=== PATIENT | female | born 1955 | race Caucasian/White ===

== ENCOUNTER → 2017-03-30 | Outpatient (CLI) | payer OTHER ==
--- NOTE | 2017-03-30 18:07 | RADIOLOGY REPORT (SQ) ---
EXAM DESCRIPTION: KUB COMPLETED DATE/TIME: 03/30/2017 5:39 pm REASON FOR STUDY: ACUTE CYSTITIS WITH HEMATURIA N30.01 ACUTE CYSTITIS WITH HEMATURIA COMPARISON: 02/16/2016 NUMBER OF VIEWS: One view. TECHNIQUE: Supine radiographic image of the abdomen acquired. LIMITATIONS: None. FINDINGS: BOWEL GAS PATTERN: Normal bowel gas pattern. No dilated loops. CALCIFICATIONS: No suspicious calcifications. Pelvic calcifications are unchanged. SOFT TISSUES: No gross mass or suggestion of organomegaly. HARDWARE: None in the abdomen. BONES: No acute fracture. No worrisome bone lesions. OTHER: No other significant finding. IMPRESSION: NO RADIOGRAPHIC EVIDENCE FOR ACUTE ABDOMINAL DISEASE. TECHNICAL DOCUMENTATION: JOB ID: [id number] [employer]- All Rights Reserved
[2017-03-30 18:08] LABS: ABSOLUTE EOSINOPHILS # (AUTO) 0.1 10^3/uL (0.0-0.6); ABSOLUTE LYMPHOCYTES (AUTO) 1.3 10^3/uL (0.5-4.7); ABSOLUTE MONOCYTES (AUTO) 0.8 10^3/uL (0.1-1.4); ABSOLUTE NEUT (AUTO) 6.2 10^3/uL (1.7-8.2); BASOPHILS % (AUTO) 0.5 % (0-2); EOSINOPHILS % (AUTO) 0.9 % (0-6); HEMATOCRIT 46.6 % (36.0-47.0); HEMOGLOBIN 15.7 g/dL (12.0-15.5); HGB HCT DIFFERENCE 0.5; LYMPHOCYTES % (AUTO) 15.3 % (13-45); MEAN CORPUSCULAR HEMOGLOBIN 30.2 pg (27.0-33.4); MEAN CORPUSCULAR HGB CONC 33.6 g/dL (32.0-36.0); MEAN CORPUSCULAR VOLUME 90 fl (80-97); MONOCYTES % (AUTO) 9.1 % (3-13); RED BLOOD COUNT 5.19 10^6/uL (3.72-5.28); RED CELL DISTRIBUTION WIDTH 14.3 % (11.5-14.0); SEGMENTED NEUTROPHILS % (AUTO) 74.2 % (42-78); WHITE BLOOD COUNT 8.4 10^3/uL (4.0-10.5)
[2017-03-30 18:26] LABS: ALANINE AMINOTRANSFERASE 70 U/L (9-52); ALBUMIN 4.4 g/dL (3.5-5.0); ALKALINE PHOSPHATASE 110 U/L (38-126); ANION GAP 13 (5-19); ASPARTATE AMINO TRANSFERASE 61 U/L (14-36); BILIRUBIN,DIRECT 0.6 mg/dL (0.0-0.4); BILIRUBIN,TOTAL 1.3 mg/dL (0.2-1.3); BLOOD UREA NITROGEN 14 mg/dL (7-20); CALCIUM 9.5 mg/dL (8.4-10.2); CARBON DIOXIDE 24 mmol/L (22-30); CHLORIDE 102 mmol/L (98-107); CREATININE RESULT 0.86 mg/dL (0.52-1.25); GLUCOSE 108 mg/dL (75-110); POTASSIUM 3.9 mmol/L (3.6-5.0); SODIUM 139.2 mmol/L (137-145); TOTAL PROTEIN 7.5 g/dL (6.3-8.2)
== END ==
LOC: OD 16:53
PROVIDERS: ATTEND Physician Assistant
DX: N30.01 Acute cystitis with hematuria (principal); R82.99 Other abnormal findings in urine
CPT/HCPCS: 36415; 74000; 80053; 85025; 87086; 87088; 87186

== ENCOUNTER → 2018-03-30 | Outpatient (CLI) | payer OTHER ==
[2018-03-30 16:25] LABS: ABSOLUTE BASOPHILS # (AUTO) 0.1 10^3/uL (0.0-0.2); ABSOLUTE EOSINOPHILS # (AUTO) 0.2 10^3/uL (0.0-0.6); ABSOLUTE LYMPHOCYTES (AUTO) 1.7 10^3/uL (0.5-4.7); ABSOLUTE MONOCYTES (AUTO) 0.4 10^3/uL (0.1-1.4); ABSOLUTE NEUT (AUTO) 3.1 10^3/uL (1.7-8.2); BASOPHILS % (AUTO) 1.4 % (0-2); EOSINOPHILS % (AUTO) 2.8 % (0-6); HEMATOCRIT 46.5 % (36.0-47.0); HEMOGLOBIN 15.6 g/dL (12.0-15.5); LYMPHOCYTES % (AUTO) 31.2 % (13-45); MEAN CORPUSCULAR HEMOGLOBIN 30.5 pg (27.0-33.4); MEAN CORPUSCULAR HGB CONC 33.7 g/dL (32.0-36.0); MEAN CORPUSCULAR VOLUME 91 fl (80-97); MONOCYTES % (AUTO) 7.8 % (3-13); PLATELET COUNT 255 10^3/uL (150-450); RED BLOOD COUNT 5.12 10^6/uL (3.72-5.28); RED CELL DISTRIBUTION WIDTH 14.6 % (11.5-14.0); SEGMENTED NEUTROPHILS % (AUTO) 56.8 % (42-78); TOTAL CELLS COUNTED % (AUTO) 100 %; WHITE BLOOD COUNT 5.5 10^3/uL (4.0-10.5)
--- NOTE | 2018-03-30 16:33 | RADIOLOGY REPORT (SQ) ---
EXAM DESCRIPTION: CHEST PA/LATERAL COMPLETED DATE/TIME: 03/30/2018 4:26 pm REASON FOR STUDY: PRE-OP COMPARISON: 02/11/2015. EXAM PARAMETERS: NUMBER OF VIEWS: two views TECHNIQUE: Digital Frontal and Lateral radiographic views of the chest acquired. RADIATION DOSE: NA LIMITATIONS: none FINDINGS: LUNGS AND PLEURA: No opacities, masses or pneumothorax. No pleural effusion. MEDIASTINUM AND HILAR STRUCTURES: No masses or contour abnormalities. HEART AND VASCULAR STRUCTURES: Heart normal size. No evidence for failure. BONES: No acute findings. HARDWARE: None in the chest. OTHER: No other significant finding. IMPRESSION: NO SIGNIFICANT RADIOGRAPHIC FINDING IN THE CHEST. TECHNICAL DOCUMENTATION: JOB ID: [id number] [employer]- All Rights Reserved Reading location - IP/workstation name: [email or web address]
[2018-03-30 16:43] LABS: ANION GAP 11 (5-19); BLOOD UREA NITROGEN 23 mg/dL (7-20); CALCIUM 9.5 mg/dL (8.4-10.2); CARBON DIOXIDE 22 mmol/L (22-30); CHLORIDE 108 mmol/L (98-107); GLUCOSE 90 mg/dL (75-110); POTASSIUM 4.7 mmol/L (3.6-5.0); SODIUM 140.5 mmol/L (137-145)
[2018-03-30 17:29] LABS: APPEARANCE,URINE SLIGHTLY-CLOUDY; BILIRUBIN,URINE NEGATIVE (NEGATIVE); COLOR,URINE YELLOW; GLUCOSE, URINE NEGATIVE (NEGATIVE); KETONES,URINE NEGATIVE (NEGATIVE); LEUKOCYTE ESTERASE,URINE NEGATIVE (NEGATIVE); NITRITE,URINE NEGATIVE (NEGATIVE); PROTEIN,URINE NEGATIVE (NEGATIVE); URINE SPECIFIC GRAVITY 1.017; UROBILINOGEN,URINE NEGATIVE mg/dL (<2.0)
--- NOTE | 2018-03-31 20:52 | EKG REPORT ---
SEVERITY:- NORMAL ECG - SINUS RHYTHM : Confirmed by: Stella Corley MD 31-Mar-2018 20:51:33
== END ==
LOC: OD 15:17
PROVIDERS: ATTEND Orthopaedic Surgery
DX: Z01.818 Encounter for other preprocedural examination (principal)
CPT/HCPCS: 36415; 71046; 80048; 81001; 85025; 93005; 93010

== ENCOUNTER 2018-04-17 06:45 | Inpatient (IN) | payer OTHER ==
--- NOTE | 2018-04-13 09:14 | Physician Advisory Note ---
Physician Advisor ProgressNote .: Pursuant to the plan for [facility], I have reviewed the medical record for this patient. Physician Advisor Statement: Surgical necessity: beautiful documentation in H&P of all points required by Medicare/governmental payers. Status: obesity w/BMI 38, underlying DM-2, asthma, COPD, HTN, HLD, prior back surgery which pre-op nurse indicates leaves her w/a very difficult time just walking - which may complicate/slow her post-op progress. Allergies already to Demerol, Vicodin, as well as iodine & Levaquin. Not likely to be safe & ready for d/c on POD #1. Appropriate for Inpt status. CK
[~2018-04-17 06:45] MED LIST: CEFAZOLIN INJ 1 GM VIAL IV PRN; CEFAZOLIN INJ 1 GM VIAL ONE; IBUPROFEN 800 MG/NS 250 ML IV PRN; LACTATED RINGERS 1000 ML IV PRN; LANSOPRAZOLE 15 MG TAB.RAP.DR ONE; LANSOPRAZOLE 15 MG TAB.RAP.DR PO PRN; LIDOCAINE 0.5% INJ-PF (5 MG/ML) 50 ML SDV SUBCUT PRN; OXYCODONE HCL SR 10 MG TABLET PO ONE; OXYCODONE HCL SR 10 MG TABLET PO PRN; VANCOMYCIN HCL 1,000 MG in DEXTROSE 5%-WATER 250 ML IV PRN
[2018-04-17] MEDS ORDERED: TRANEXAMIC ACID INJ/PF 1,000 MG/10 ML SDV IV ONE ×2 (06:51→12:30)
[2018-04-17] MEDS ORDERED: PROPOFOL INJ 200 MG/20 ML VIAL IV ONE (06:51)
[2018-04-17] MEDS ORDERED: MIDAZOLAM 2 MG/2 ML INJ ONE (06:51)
[2018-04-17] MEDS ORDERED: FENTANYL CITRATE INJ/PF 100 MCG/2 ML AMPUL ONE (06:51)
[2018-04-17] MEDS ORDERED: LIDOCAINE 2% INJ-PF (20 MG/ML) 10 ML AMPUL ONE (07:10)
[2018-04-17] MEDS ORDERED: EPHEDRINE SULFATE INJ 50 MG/1 ML AMPULE ONE (07:10)
[2018-04-17] MEDS ORDERED: BUPIVACAINE HCL/DEX-WATER/PF 15 MG/2 ML AMPULE ONE (07:13)
[2018-04-17] MEDS ORDERED: BUPIVACAINE INJ/PF LIPOSOME/PF 266 MG/20 ML SDV ONE (07:44)
[2018-04-17] MEDS: BUPIVACAINE INJ/PF LIPOSOME/PF 266 MG/20 ML SDV IJ PRN ×2 (07:50→09:23)
[2018-04-17] MEDS: THROMBIN (BOVINE) TOPICAL 20000 UNIT VIAL ONE ×2 (07:52→09:23)
[2018-04-17] MEDS: THROMBIN (BOVINE) 5000 UNIT EPITAXIS KIT ONE ×2 (07:53→09:23)
[2018-04-17] MEDS ORDERED: FENTANYL CITRATE INJ/PF 100 MCG/2 ML AMPUL IV PRN ×3 (09:10)
[2018-04-17] MEDS ORDERED: DIPHENHYDRAMINE HCL 50 MG/ML VIAL IV PRN ×2 (09:10→10:01)
[2018-04-17] MEDS ORDERED: PROMETHAZINE HCL INJ 25 MG/1 ML VIAL IV PRN ×2 (09:10)
--- NOTE | 2018-04-17 10:00 | Operative Report ---
Operative Report DATE OF SURGERY: 04/17/18 PREOPERATIVE DIAGNOSIS: Right knee arthritis OPERATION: Right knee arthroplasty SURGEON: CLARI LYON ANESTHESIA: Spinal TISSUE REMOVED OR ALTERED: Bone to pathology ESTIMATED BLOOD LOSS: 100 PROCEDURE: Implants used: Femur: Porter triathlon size 4 CR femur Tibia: 4 tibia Tibial liner: 11 mm insert Patella: 32 mm oval patella Procedure with the patient supine on the operating table the right the limb is prepped and draped in a sterile fashion. The limb was elevated for exsanguination and the tourniquet inflated to 280 torr. A standard midline median parapatellar approach the knee is taken. Access is gained to the femoral canal through the intercondylar notch. Intramedullary alignment instrumentation used to resect 10 mm of distal femur in 5 of valgus. Sizing guide indicated a size 4 femur. Appropriate cutting jig is then used to fashion anterior posterior and chamfer cuts. A trial reduction femurs performed and this is judged to be adequate. Attention was next turned to the tibia. Using an extra medullary alignment system 9 millimeters was resected off the lateral tibial plateau. This is sized to a size 4 tibia. A trial reduction was now performed with a 4 femur and a for tibia using a 11 millimeters spacer. It is full extension and central patellofemoral tracking. The articular surface the patella was next resected using an oscillating saw. All trial implants were removed. Polymethylmethacrylate is mixed and used to cement the above implants in place. On adequate curing the cement excess cement was removed the tourniquet was deflated hemostasis obtained the wound is then closed in layers using interrupted Vicryl followed by bony. A sterile compressive dressing was applied and the patient returned to recovery room in satisfactory condition.
[2018-04-17] MEDS ORDERED: ACETAMINOPHEN 325 MG TABLET PO PRN (10:01)
[2018-04-17] MEDS ORDERED: ONDANSETRON HCL INJ/PF 4 MG/2 ML SDV IV PRN ×2 (10:01→12:30)
[2018-04-17] MEDS ORDERED: ZOLPIDEM TARTRATE 5 MG TABLET PO PRN (10:01)
[2018-04-17] MEDS ORDERED: ONDANSETRON 4 MG TAB.RAPDIS PO PRN ×2 (10:01→12:30)
[2018-04-17] MEDS ORDERED: MORPHINE SULFATE 10 MG/ML INJ IM PRN (10:01)
[2018-04-17] MEDS ORDERED: MORPHINE SULFATE 10 MG/ML INJ IV PRN ×3 (10:01)
[2018-04-17] MEDS ORDERED: RINGERS SOLUTION,LACTATED 1,000 ML IV PRN (10:01)
[2018-04-17] MEDS ORDERED: MAG HYDROX/AL HYDROX/SIMETH SUSP 30 ML UDCUP PO PRN (10:01)
[2018-04-17] MEDS ORDERED: PHENYLEPHRINE HCL INJ/PF 10 MG/1 ML SDV ONE (10:23)
[2018-04-17] MEDS ORDERED: ONDANSETRON HCL INJ/PF 4 MG/2 ML SDV ONE (10:23)
--- NOTE | 2018-04-17 10:59 | RADIOLOGY REPORT (SQ) ---
EXAM DESCRIPTION: KNEE RIGHT 2 VIEWS COMPLETED DATE/TIME: 04/17/2018 10:50 am REASON FOR STUDY: Post OP -Long Cassette in PACU M17.11 UNILATERAL PRIMARY OSTEOARTHRITIS, RIGHT KN EE COMPARISON: None. NUMBER OF VIEWS: Two view(s). TECHNIQUE: Digital radiographic images of the right knee post-procedure. LIMITATIONS: None. FINDINGS: BONES: No worrisome or unexpected findings post-procedure. DEVICE: Total knee arthroplasty. SOFT TISSUES: No worrisome findings. Expected postoperative soft tissue changes. IMPRESSION: SATISFACTORY POSTOPERATIVE RIGHT KNEE. TECHNICAL DOCUMENTATION: JOB ID: [id number] [employer]- All Rights Reserved Reading location - IP/workstation name: [email or web address]
[2018-04-17] MEDS: OXYCODONE HCL IR 5 MG TABLET PO PRN (14:04)
[2018-04-17] MEDS: PREGABALIN 75 MG CAPSULE PO SCH (17:32)
[2018-04-17] MEDS: SENNOSIDES/DOCUSATE 8.6-50 MG 1 EACH TABLET PO SCH (17:32)
[2018-04-17] MEDS: OXYCODONE HCL SR 10 MG TABLET PO SCH (21:31)
[2018-04-17] MEDS ORDERED: VANCOMYCIN HCL 1,000 MG in DEXTROSE 5%-WATER 250 ML IV ONE ×2 (22:00→23:30)
[2018-04-18] MEDS: OXYCODONE HCL IR 5 MG TABLET PO PRN (03:50)
[2018-04-18] MEDS: LANSOPRAZOLE 30 MG TAB.RAP.DR PO SCH (05:46)
[2018-04-18 06:45] LABS: HEMATOCRIT 39.3 % (36.0-47.0); HEMOGLOBIN 13.2 g/dL (12.0-15.5); MEAN CORPUSCULAR HEMOGLOBIN 30.5 pg (27.0-33.4); MEAN CORPUSCULAR HGB CONC 33.5 g/dL (32.0-36.0); MEAN CORPUSCULAR VOLUME 91 fl (80-97); PLATELET COUNT 226 10^3/uL (150-450); RED BLOOD COUNT 4.32 10^6/uL (3.72-5.28); RED CELL DISTRIBUTION WIDTH 14.4 % (11.5-14.0); WHITE BLOOD COUNT 6.8 10^3/uL (4.0-10.5)
[2018-04-18 07:04] LABS: BLOOD UREA NITROGEN 17 mg/dL (7-20); CALCIUM 8.6 mg/dL (8.4-10.2); GLUCOSE 127 mg/dL (75-110)
[2018-04-18 07:05] LABS: ANION GAP 9 (5-19); CARBON DIOXIDE 23 mmol/L (22-30); CHLORIDE 102 mmol/L (98-107); POTASSIUM 4.8 mmol/L (3.6-5.0); SODIUM 134.3 mmol/L (137-145)
--- NOTE | 2018-04-18 07:13 | PDOC PROGRESS REPORT ---
Subjective Progress Note for:: 04/18/18 Reason For Visit: M17.11 UNILATERAL PRIMARY OSTEOARTHRITIS, RIGHT KN 62-year-old white female postop day 1 right knee arthroplasty with reasonable progress with physical therapy yesterday but uncontrolled pain last night. Physical Exam Vital Signs: Temp Pulse Resp BP Pulse Ox 37.1 C 84 17 130/64 H 98 04/17/18 23:38 04/17/18 23:38 04/17/18 23:38 04/17/18 23:38 04/17/18 23:38 Intake & Output 04/17/18 04/18/18 04/19/18 06:59 06:59 06:59 Intake Total 4495 Output Total 3055 Balance 1440 Weight 103.9 kg Physical Exam: Overweight middle-aged white female reclining in a recliner in the room. General appearance: PRESENT: no acute distress, mild distress, well-nourished Head exam: PRESENT: normocephalic Respiratory exam: PRESENT: unlabored Cardiovascular exam: PRESENT: RRR Pulses: PRESENT: +1 pedal pulses bilateral Vascular exam: PRESENT: normal capillary refill GI/Abdominal exam: PRESENT: soft Rectal exam: PRESENT: deferred Extremities exam: PRESENT: other - Right knee dressing change today. Wound is well approximated with bony. There is no active drainage. There is no erythema. There is a generalized soft tissue swelling about the knee. Distal neurovascular examination is intact. Neurological exam: PRESENT: alert, awake, oriented to person, oriented to place , oriented to time, oriented to situation. ABSENT: motor sensory deficit Psychiatric exam: PRESENT: appropriate affect, normal mood. ABSENT: homicidal ideation, suicidal ideation Skin exam: PRESENT: dry, intact, warm. ABSENT: cyanosis, rash Results Laboratory Results: 04/18/18 06:15 04/18/18 06:15 04/18/18 04/18/18 06:15 06:15 WBC 6.8 RBC 4.32 Hgb 13.2 Hct 39.3 MCV 91 MCH 30.5 MCHC 33.5 RDW 14.4 H Plt Count 226 Sodium 134.3 L Potassium 4.8 Chloride 102 Carbon Dioxide 23 Anion Gap 9 BUN 17 Creatinine 0.81 Est GFR ( Amer) > 60 Est GFR (Non-Af Amer) > 60 Glucose 127 H Calcium 8.6 Impressions: Knee X-Ray 04/17/18 10:02 IMPRESSION: SATISFACTORY POSTOPERATIVE RIGHT KNEE. Status: Imported from PACS Assessment & Plan - Diagnosis (1) Arthritis of right knee Is this a current diagnosis for this admission?: Yes Plan: 62-year-old female postop day 1 right knee arthroplasty. Patient had reasonable function yesterday but with uncontrolled pain she requests further hospitalization rather than discharged today. I think this is reasonable. Plan will be for discharge home tomorrow with home health services and DME. Patient is requesting an ice machine for her knee. I think this is reasonable if her insurance company will pay for it. Otherwise ice packs to the knee can be used - Time Time Spent with patient: 15-24 minutes Anticipated discharge: Home with Homehealth Within: within 24 hours
[2018-04-18] MEDS ORDERED: ONDANSETRON 4 MG TAB.RAPDIS PO PRN (10:00)
[2018-04-18] MEDS: KETOROLAC TROMETHAMINE INJ/PF 30 MG/1 ML SDV IM PRN ×2 (10:05→18:36)
[2018-04-18] MEDS: PRENATAL VITAMIN W DHA CAPSULE PO SCH (13:59)
[2018-04-18] MEDS: PREGABALIN 75 MG CAPSULE PO SCH ×2 (13:59→18:35)
[2018-04-18] MEDS: ASPIRIN 81 MG TABLET, ENT COATED PO SCH (13:59)
[2018-04-18] MEDS: SENNOSIDES/DOCUSATE 8.6-50 MG 1 EACH TABLET PO SCH ×2 (13:59→18:30)
[2018-04-18] MEDS: OXYCODONE HCL SR 10 MG TABLET PO SCH ×2 (14:02→22:51)
[2018-04-19] MEDS: KETOROLAC TROMETHAMINE INJ/PF 30 MG/1 ML SDV IM PRN (03:45)
[2018-04-19 05:14] LABS: HEMATOCRIT 37.1 % (36.0-47.0); HEMOGLOBIN 12.7 g/dL (12.0-15.5); MEAN CORPUSCULAR HEMOGLOBIN 30.9 pg (27.0-33.4); MEAN CORPUSCULAR HGB CONC 34.1 g/dL (32.0-36.0); MEAN CORPUSCULAR VOLUME 90 fl (80-97); PLATELET COUNT 207 10^3/uL (150-450); RED BLOOD COUNT 4.11 10^6/uL (3.72-5.28); RED CELL DISTRIBUTION WIDTH 14.2 % (11.5-14.0); WHITE BLOOD COUNT 6.1 10^3/uL (4.0-10.5)
[2018-04-19] MEDS: LANSOPRAZOLE 30 MG TAB.RAP.DR PO SCH (06:12)
--- NOTE | 2018-04-19 07:08 | PDOC DISCHARGE SUMMARY ---
General - Admit/Disc Date/PCP Admission Date/Primary Care Provider: 04/17/18 06:45 PORSHA DUNN Discharge Date: 04/19/18 - Discharge Diagnosis (1) Arthritis of right knee Is this a current diagnosis for this admission?: Yes - Additional Information Resuscitation Status: Full Code Home Medications: Albuterol Sulfate [Ventolin 0.083% Neb 2.5 mg/3 mL Ampul] 2 puff NEB Q8H PRN 09/14 Fexofenadine HCl [Ryanne] 180 mg PO DAILYP PRN 12/04/13 Meclizine HCl [Antivert 25 mg Tablet] 12.5 mg PO TIDP PRN 12/04/13 Montelukast Sodium [Singulair 10 mg Tablet] 10 mg PO HSP PRN 12/04/13 Albuterol Sulfate [Proair HFA] 2 puff IH Q6HP PRN 04/04/18 Aspirin/Acetaminophen/Caffeine [Excedrin Migraine Caplet] 2 tab PO DAILYP PRN Bacitracin Zinc [Bacitracin Oint 15 gm] 1 applic TOP Q2D 04/04/18 Gabapentin 100 mg PO DAILYP PRN 04/04/18 Ibuprofen 800 mg PO DAILY 04/04/18 Triamcinolone Acetonide [Aristocort 0.1% Cream] 1 applic TOP Q2D 04/04/18 Ondansetron [Zofran Odt 4 mg Tablet] 4 mg SL Q4HP PRN 04/17/18 History of Present Illness History of Present Illness: MARE RICE is a 62 year old female Patient is a 62-year-old white female with progressive right knee pain and functional disability secondary osteoarthritis. Patient is admitted for elective right knee arthroplasty. Hospital Course Hospital Course: Patient is admitted through the operating where she undergoes unconjugated right knee arthroplasty. She is returned to floor in satisfactory condition. She makes progress with physical therapy on the day of surgery but pain control that day and the subsequent night are problematic. Pain control is better on the first postoperative day and the patient makes excellent progress with physical therapy. She ambulates greater than 200 feet. She is able to do stairs. Patient is ready for discharge home with home health services and DME. Physical Exam Vital Signs: Temp Pulse Resp BP Pulse Ox 36.9 C 83 17 109/63 97 04/18/18 23:13 04/18/18 23:13 04/18/18 23:13 04/18/18 23:13 04/18/18 23:13 Intake & Output 04/18/18 04/19/18 04/20/18 06:59 06:59 06:59 Intake Total 4495 650 Output Total 3055 2 Balance 1440 648 Weight 103.9 kg 103.6 kg General appearance: PRESENT: no acute distress Head exam: PRESENT: normocephalic Respiratory exam: PRESENT: unlabored Cardiovascular exam: PRESENT: RRR Pulses: PRESENT: +1 pedal pulses bilateral Vascular exam: PRESENT: normal capillary refill GI/Abdominal exam: PRESENT: soft Rectal exam: PRESENT: deferred Extremities exam: PRESENT: other - Right knee postop OpSite dressing is clean dry and intact. There is minimal pedal edema. Neurological exam: PRESENT: alert, awake, oriented to person, oriented to place , oriented to time, oriented to situation. ABSENT: motor sensory deficit Psychiatric exam: PRESENT: appropriate affect, normal mood. ABSENT: homicidal ideation, suicidal ideation Skin exam: PRESENT: dry, intact, warm. ABSENT: cyanosis, rash Results Laboratory Results: 04/19/18 04:36 04/18/18 06:15 04/18/18 04/19/18 06:15 04:36 WBC 6.1 RBC 4.11 Hgb 12.7 Hct 37.1 MCV 90 MCH 30.9 MCHC 34.1 RDW 14.2 H Plt Count 207 Sodium 134.3 L Potassium 4.8 Chloride 102 Carbon Dioxide 23 Anion Gap 9 BUN 17 Creatinine 0.81 Est GFR ( Amer) > 60 Est GFR (Non-Af Amer) > 60 Glucose 127 H Calcium 8.6 Impressions: Knee X-Ray 04/17/18 10:02 IMPRESSION: SATISFACTORY POSTOPERATIVE RIGHT KNEE. Status: Imported from PACS Qualifiers - * PATIENT BEING DISCHARGED WITH ANY OF THE FOLLOWING DIAGNOSIS: No VTE patient discharged on overlapping Therapy?: Yes Plan Discharge Plan: Social work to arrange for home health services and DME. Follow-up with Dr. Maurice and [facility] for surgery in 2 weeks for staple removal. Time Spent: Less than 30 Minutes
[2018-04-19 09:33] VITALS: BP 146/89
[2018-04-19] MEDS: OXYCODONE HCL SR 10 MG TABLET PO SCH (10:21)
[2018-04-19] MEDS: ASPIRIN 81 MG TABLET, ENT COATED PO SCH (10:21)
[2018-04-19] MEDS: PREGABALIN 75 MG CAPSULE PO SCH (10:21)
[2018-04-19] MEDS: SENNOSIDES/DOCUSATE 8.6-50 MG 1 EACH TABLET PO SCH (10:21)
[2018-04-19] MEDS: PRENATAL VITAMIN W DHA CAPSULE PO SCH (10:22)
== END 2018-04-19 10:45 | disposition home health service (06) | DRG 470 ==
LOC: INOR 06:45 → 4S 12:33
PROVIDERS: ADMIT Orthopaedic Surgery; ATTEND Orthopaedic Surgery
PROC: 0SRC0J9 Replacement of Right Knee Joint with Synthetic Substitute, Cemented, Open Approach (ICD-10-PCS; principal; 2018-04-17 08:45)
DX: M17.11 Unilateral primary osteoarthritis, right knee (principal); M19.90 Unspecified osteoarthritis, unspecified site; J44.9 Chronic obstructive pulmonary disease, unspecified; I10 Essential (primary) hypertension; E78.5 Hyperlipidemia, unspecified; F32.9 Major depressive disorder, single episode, unspecified; Z79.51 Long term (current) use of inhaled steroids; Z79.899 Other long term (current) drug therapy
CPT/HCPCS: 01402; 36415; 80048; 85027; 88305; 88311; 94799; C1713; C1776; C9290; G0283-GP; J0690; J1741; J1885; J2250; J2270; J2370; J2405; J2704; J3010; J3370; J3490; J7050; J7060; S0119

== ENCOUNTER 2018-06-19 09:23 | Day surgery (SDC) | payer OTHER ==
[2018-06-16 12:11] LABS: HEMATOCRIT 46.1 % (36.0-47.0); HEMOGLOBIN 15.4 g/dL (12.0-15.5); MEAN CORPUSCULAR HEMOGLOBIN 30.5 pg (27.0-33.4); MEAN CORPUSCULAR HGB CONC 33.5 g/dL (32.0-36.0); MEAN CORPUSCULAR VOLUME 91 fl (80-97); PLATELET COUNT 247 10^3/uL (150-450); RED BLOOD COUNT 5.06 10^6/uL (3.72-5.28); RED CELL DISTRIBUTION WIDTH 14.5 % (11.5-14.0); WHITE BLOOD COUNT 4.2 10^3/uL (4.0-10.5)
[2018-06-16 12:24] LABS: APPEARANCE,URINE SLIGHTLY-CLOUDY; BILIRUBIN,URINE NEGATIVE (NEGATIVE); COLOR,URINE YELLOW; GLUCOSE, URINE NEGATIVE (NEGATIVE); KETONES,URINE NEGATIVE (NEGATIVE); LEUKOCYTE ESTERASE,URINE NEGATIVE (NEGATIVE); NITRITE,URINE NEGATIVE (NEGATIVE); PROTEIN,URINE NEGATIVE (NEGATIVE); URINE SPECIFIC GRAVITY 1.023; UROBILINOGEN,URINE NEGATIVE mg/dL (<2.0)
[2018-06-16 12:40] LABS: ANION GAP 12 (5-19); BLOOD UREA NITROGEN 21 mg/dL (7-20); CALCIUM 9.4 mg/dL (8.4-10.2); CARBON DIOXIDE 28 mmol/L (22-30); CHLORIDE 106 mmol/L (98-107); GLUCOSE 103 mg/dL (75-110); POTASSIUM 4.9 mmol/L (3.6-5.0); SODIUM 146.2 mmol/L (137-145)
--- NOTE | 2018-06-16 13:09 | RADIOLOGY REPORT (SQ) ---
EXAM DESCRIPTION: CHEST PA/LATERAL COMPLETED DATE/TIME: 06/16/2018 1:00 pm REASON FOR STUDY: PRE OP COMPARISON: 02/11/2015 03/30/2018 EXAM PARAMETERS: NUMBER OF VIEWS: two views TECHNIQUE: Digital Frontal and Lateral radiographic views of the chest acquired. RADIATION DOSE: NA LIMITATIONS: none FINDINGS: LUNGS AND PLEURA: No opacities, masses or pneumothorax. No pleural effusion. MEDIASTINUM AND HILAR STRUCTURES: No masses or contour abnormalities. HEART AND VASCULAR STRUCTURES: Heart normal size. No evidence for failure. BONES: No acute findings. HARDWARE: None in the chest. OTHER: No other significant finding. IMPRESSION: NO SIGNIFICANT RADIOGRAPHIC FINDING IN THE CHEST. TECHNICAL DOCUMENTATION: JOB ID: [id number] [employer]- All Rights Reserved Reading location - IP/workstation name: [email or web address]
--- NOTE | 2018-06-17 07:45 | EKG REPORT ---
SEVERITY:- NORMAL ECG - SINUS RHYTHM : Confirmed by: Stella Corley MD 17-Jun-2018 07:44:36
[~2018-06-19 09:23] MED LIST changes: +CEFAZOLIN 2 GM/D5W RTU 2 GM/50 ML RTUPB IV ONE; +CEFAZOLIN 2 GM/D5W RTU 2 GM/50 ML RTUPB IV PRN; -CEFAZOLIN INJ 1 GM VIAL IV PRN; -CEFAZOLIN INJ 1 GM VIAL ONE; -IBUPROFEN 800 MG/NS 250 ML IV PRN; -LANSOPRAZOLE 15 MG TAB.RAP.DR ONE; -LANSOPRAZOLE 15 MG TAB.RAP.DR PO PRN; -OXYCODONE HCL SR 10 MG TABLET PO ONE; -OXYCODONE HCL SR 10 MG TABLET PO PRN; -VANCOMYCIN HCL 1,000 MG in DEXTROSE 5%-WATER 250 ML IV PRN
[2018-06-19] MEDS ORDERED: PROPOFOL INJ 200 MG/20 ML VIAL IV ONE (10:28)
[2018-06-19] MEDS ORDERED: FENTANYL CITRATE INJ/PF 100 MCG/2 ML AMPUL ONE ×2 (10:28→12:23)
[2018-06-19] MEDS ORDERED: MIDAZOLAM 2 MG/2 ML INJ ONE ×2 (10:28→11:37)
--- NOTE | 2018-06-19 11:49 | Discharge Summary ---
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 Date of Surgery: 06/19/18 Discharge Date: 06/19/18 Condition: Good Treatment or Instructions: Physical therapy for range of motion and strengthening, weightbearing as tolerated ambulation Prescriptions: Oxycodone HCl [Oxaydo] 5 mg PO PRN PRN #60 tablet.orl PRN Reason: Referrals: EDUARDO BUI PA [Primary Care Provider] - Discharge Diet: As Tolerated, Regular Respiratory Treatments at Home: Deep Breathing/Coughing Discharge Activity: Balance Activity w/Rest, No Driving, No tub bath Activities Provided by Home Health Agency: Physical Therapy Report the Following to Your Physician Immediately: Shortness of Breath, Fever over 101 Degrees, Drainage-Foul Smelling
[2018-06-19] MEDS ORDERED: DIPHENHYDRAMINE HCL 50 MG/ML VIAL IV PRN (11:51)
[2018-06-19] MEDS ORDERED: FENTANYL CITRATE INJ/PF 100 MCG/2 ML AMPUL IV PRN (11:51)
[2018-06-19] MEDS ORDERED: PROMETHAZINE HCL INJ 25 MG/1 ML VIAL IV PRN (11:51)
--- NOTE | 2018-06-19 11:56 | Operative Report ---
Operative Report DATE OF SURGERY: 06/19/18 PREOPERATIVE DIAGNOSIS: R knee arthrofibrosis OPERATION: closed manipulation r knee SURGEON: CLARI LYON TISSUE REMOVED OR ALTERED: none ESTIMATED BLOOD LOSS: 0 PROCEDURE: pre -op 0-45 deg post op 0-120 deg
[2018-06-19] MEDS ORDERED: KETOROLAC TROMETHAMINE INJ/PF 30 MG/1 ML SDV ONE (12:03)
[2018-06-19] MEDS ORDERED: ACETAMINOPHEN 1,000 MG/100 ML RTUPB IV ONE (12:04)
[2018-06-19] MEDS: FENTANYL CITRATE INJ/PF 100 MCG/2 ML AMPUL IV PRN ×2 (12:22→13:41)
[2018-06-19] MEDS ORDERED: DIAZEPAM 5 MG TABLET ONE (13:25)
[2018-06-19 15:35] VITALS: BP 148/93
== END 2018-06-19 14:20 | disposition home or self-care (01) ==
LOC: OROUT 09:23
PROVIDERS: ATTEND Orthopaedic Surgery
DX: M24.661 Ankylosis, right knee (principal); Z96.651 Presence of right artificial knee joint; E11.9 Type 2 diabetes mellitus without complications; M19.90 Unspecified osteoarthritis, unspecified site; J44.9 Chronic obstructive pulmonary disease, unspecified; E66.9 Obesity, unspecified; Z68.38 Body mass index [BMI] 38.0-38.9, adult; Z88.5 Allergy status to narcotic agent; Z79.51 Long term (current) use of inhaled steroids; Z79.82 Long term (current) use of aspirin; Z79.1 Long term (current) use of non-steroidal anti-inflammatories (NSAID); Z79.899 Other long term (current) drug therapy
CPT/HCPCS: 93005; 36415; 85027; 80048; 81001; 71046; 93010; 27599; J2250; J3010; J1885; J2704; J0690; J0131; 1390